=== PATIENT | female | born 1985 | race Two or more races ===

== ENCOUNTER 2018-01-01 09:55 | Emergency (ER) | payer MEDICAID ==
[~2018-01-01] VITALS: Ht 160 cm; Wt 61.2 kg
[2018-01-01 10:09] VITALS: BP 138/69
[2018-01-01] MEDS ORDERED: ACETAMINOPHEN 325 MG TABLET ONE (11:09)
[2018-01-01] MEDS ORDERED: ACETAMINOPHEN 325 MG TABLET PO ONE (11:30)
== END 2018-01-01 11:25 | disposition home or self-care (01) ==
LOC: ER 09:57
DX: J02.8 Acute pharyngitis due to other specified organisms (principal); B97.89 Other viral agents as the cause of diseases classified elsewhere
CPT/HCPCS: A4606; Z7610

== ENCOUNTER 2019-01-03 10:40 | Emergency (ER) | payer MEDICAID ==
[~2019-01-03] VITALS: Ht 157.5 cm; Wt 56.7 kg
--- NOTE | 2019-01-03 10:50 | NUR ---
URINE SPECIMEN COLLECTED AND SENT TO LAB.
--- NOTE | 2019-01-03 10:50 | NUR ---
PATIENT A/OX4, PELVIC AREA PAIN R/T LOWER BACK X 2 WEEKS, DENIES DYSURIA, BREATHING EVEN AND UNLABORED, NO SOB NOTED. WILL MONITOR.
[2019-01-03] MEDS ORDERED: IBUPROFEN 600 MG TABLET PO ONE ×2 (10:58→11:00)
--- NOTE | 2019-01-03 11:00 | NUR ---
ER PHLEB AT BEDSIDE FOR BLOOD DRAW.
[2019-01-03 11:06] LABS: BASOPHILS # (AUTO) 0.1 /CMM (0.0-0.2); BASOPHILS % (AUTO) 2.3 % (0.0-2.0); EOSINOPHILS % (AUTO) 1.2 % (0.0-6.0); HEMATOCRIT 36 % (33-45); HEMOGLOBIN 12.5 g/dL (11.5-14.8); LYMPHOCYTES # (AUTO) 0.7 /CMM (0.8-4.8); LYMPHOCYTES % (AUTO) 18.8 % (20.0-44.0); MEAN CORPUSCULAR HGB CONC 35 g/dl (31.0-36.0); MEAN CORPUSCULAR VOLUME 93 fL (82-100); MONOCYTES # (AUTO) 0.3 /CMM (0.1-1.30); MONOCYTES % (AUTO) 6.9 % (2.0-12.0); NEUTROPHILS # (AUTO) 2.8 /CMM (1.8-8.9); NEUTROPHILS % (AUTO) 70.8 % (43.0-81.0); PLATELET COUNT (AUTO) 151 /CMM (150-450); RED BLOOD CELL COUNT(AUTO) 3.91 MIL/uL (4.0-5.2); WHITE BLOOD COUNT (AUTO) 3.9 K/uL (4.3-11.0)
[2019-01-03 11:09] LABS: APPEARANCE,URINE Clear (CLEAR); BILIRUBIN,URINE Negative (NEGATIVE); BLOOD, URINE Negative Ery/uL (NEGATIVE); COLOR,URINE Yellow (YELLOW); KETONES,URINE Negative (NEGATIVE); LEUKOCYTE ESTERASE ,URINE Negative (NEGATIVE); NITRITE, URINE Negative (NEGATIVE); PROTEIN,URINE Negative (NEGATIVE); UGLUCOSE Negative (NEGATIVE); UROBILINOGEN,URINE 0.2 EU/dL (0.2)
[2019-01-03 11:11] LABS: CALCIUM, SERUM 8.4 mg/dL (8.5-10.1); CREATININE 0.6 mg/dL (0.6-1.3); POTASSIUM 3.8 mmol/L (3.5-5.1)
--- NOTE | 2019-01-03 11:39 | NUR ---
Patient discharged to home in stable condition. Written and verbal after care instructions given. Patient verbalizes understanding of instruction.
[2019-01-03 11:40] VITALS: BP 116/71
== END 2019-01-03 11:41 | disposition home or self-care (01) ==
LOC: ER 10:42
DX: R10.2 Pelvic and perineal pain (principal)
CPT/HCPCS: 36415; 76856; 80048; 81001; 84702; 85025; 99284; A4606; 81000-TC

== ENCOUNTER 2019-05-11 15:50 | Emergency (ER) | payer MEDICAID ==
[~2019-05-11] VITALS: Ht 152.4 cm; Wt 47.6 kg
[2019-05-11 16:22] LABS: APPEARANCE,URINE SL CLOUDY (CLEAR); BILIRUBIN,URINE NEGATIVE (NEGATIVE); BLOOD, URINE TRACE-INTA Ery/uL (NEGATIVE); COLOR,URINE YELLOW (YELLOW); KETONES,URINE NEGATIVE (NEGATIVE); LEUKOCYTE ESTERASE ,URINE 1+ (NEGATIVE); NITRITE, URINE NEGATIVE (NEGATIVE); PH,URINE 5.5 (5.0-8.0); PROTEIN,URINE NEGATIVE (NEGATIVE); UGLUCOSE NEGATIVE (NEGATIVE); UROBILINOGEN,URINE 0.2 EU/dL (0.2)
[2019-05-11] MEDS ORDERED: ONDANSETRON HCL/PF 4 MG/2 ML VIAL IVP ONE (16:30)
[2019-05-11] MEDS ORDERED: IV NS 0.9% 1,000 ML BAG IV ONE (16:30)
[2019-05-11] MEDS ORDERED: ONDANSETRON HCL/PF 4 MG/2 ML VIAL ONE (16:31)
[2019-05-11 16:39] LABS: BASOPHILS % (AUTO) 0.8 % (0.0-2.0); EOSINOPHILS % (AUTO) 4.7 % (0.0-6.0); HEMATOCRIT 36 % (33-45); HEMOGLOBIN 12.5 g/dL (11.5-14.8); LYMPHOCYTES % (AUTO) 22.9 % (20.0-44.0); MEAN CORPUSCULAR HGB CONC 35 g/dl (31.0-36.0); MEAN CORPUSCULAR VOLUME 91 fL (82-100); MONOCYTES # (AUTO) 0.4 /CMM (0.1-1.30); MONOCYTES % (AUTO) 8.5 % (2.0-12.0); NEUTROPHILS # (AUTO) 2.7 /CMM (1.8-8.9); NEUTROPHILS % (AUTO) 63.1 % (43.0-81.0); PLATELET COUNT (AUTO) 158 /CMM (150-450); RED BLOOD CELL COUNT(AUTO) 3.97 MIL/uL (4.0-5.2); WHITE BLOOD COUNT (AUTO) 4.3 K/uL (4.3-11.0)
--- NOTE | 2019-05-11 16:44 | NUR ---
C/O WORSENING LOWER BACK PAIN RADIATES TO LOWER ABDOMEN X 3 WEEKS +NAUSEA AND DIARRHEA X 2 DAYS. PT AAOX4, VSS. RR EVEN & UNLABORED. DENIES CP, SOB, DIZZINESS AT THIS TIME. PT SEEN & EVAL'D BY JORDIN GALLAGHER. MEDICATED ORDERED & WILL CONT TO MONITOR.
[2019-05-11 17:05] LABS: ALBUMIN 3.7 g/dL (3.4-5.0); BILIRUBIN,DIRECT 0.2 mg/dL (0.0-0.2); BILIRUBIN,TOTAL 0.8 mg/dL (0.2-1.0); CALCIUM, SERUM 8.5 mg/dL (8.5-10.1); CREATININE 0.8 mg/dL (0.6-1.3); POTASSIUM 3.8 mmol/L (3.5-5.1); TOTAL PROTEIN, SERUM 7.2 g/dL (6.4-8.2)
[2019-05-11 17:30] LABS: BACTERIA,URINE 2+ /HPF (None Seen)
[2019-05-11] MEDS ORDERED: CEFTRIAXONE 1GM BAG (ER ONLY) 1 GM/50 ML PIGGYBACK IV ONE (18:00)
[2019-05-11] MEDS ORDERED: CEFTRIAXONE 1GM BAG (ER ONLY) 50 ML IV ONE (18:21)
--- NOTE | 2019-05-11 19:18 | NUR ---
Patient discharged to home in stable condition. Written and verbal after care instructions given. Patient verbalizes understanding of instruction. IV removed. Catheter intact and site benign. Pressure and 4x4 applied to site. No bleeding noted.
[2019-05-11 19:19] VITALS: BP 108/64
== END 2019-05-11 19:20 | disposition home or self-care (01) ==
LOC: ER 15:52
DX: N12 Tubulo-interstitial nephritis, not specified as acute or chronic (principal); R19.7 Diarrhea, unspecified; Z98.890 Other specified postprocedural states
CPT/HCPCS: 36415; 80048; 80076; 81001; 84703; 85025; 87086; 96361; 96365; 96375; 99283; J0696; J2405; J7030; 81000-TC

== ENCOUNTER 2019-05-14 13:45 | Emergency (ER) | payer MEDICAID ==
--- NOTE | 2019-05-14 13:55 | NUR ---
CALLED TO TRIAGE,NO ANSWER
--- NOTE | 2019-05-14 14:20 | NUR ---
CALLED TO TRIAGE, NO ANSWER
--- NOTE | 2019-05-14 15:04 | NUR ---
CALLED IN WAITING ROOM, NO ANSWER.
== END 2019-05-14 15:07 | disposition left against medical advice (07) ==
LOC: ER 13:45
DX: M54.9 Dorsalgia, unspecified (principal); Z53.21 Procedure and treatment not carried out due to patient leaving prior to being seen by health care provider

== ENCOUNTER 2019-10-20 14:21 | Emergency (ER) | payer MEDICAID ==
[~2019-10-20] VITALS: Ht 165.1 cm; Wt 51.3 kg
[2019-10-20 14:26] VITALS: BP 106/61
[2019-10-20 14:43] LABS: BASOPHILS % (AUTO) 0.7 % (0.0-2.0); EOSINOPHILS % (AUTO) 1.4 % (0.0-6.0); HEMATOCRIT 37 % (33-45); HEMOGLOBIN 12.7 g/dL (11.5-14.8); MEAN CORPUSCULAR HGB CONC 34 g/dl (31.0-36.0); MEAN CORPUSCULAR VOLUME 93 fL (82-100); MONOCYTES # (AUTO) 0.4 /CMM (0.1-1.30); MONOCYTES % (AUTO) 8.2 % (2.0-12.0); NEUTROPHILS % (AUTO) 67.7 % (43.0-81.0); PLATELET COUNT (AUTO) 166 /CMM (150-450); RED BLOOD CELL COUNT(AUTO) 4.03 MIL/uL (4.0-5.2); WHITE BLOOD COUNT (AUTO) 4.4 K/uL (4.3-11.0)
[2019-10-20 14:46] LABS: APPEARANCE,URINE Clear (CLEAR); BILIRUBIN,URINE Negative (NEGATIVE); BLOOD, URINE Negative Ery/uL (NEGATIVE); COLOR,URINE Yellow (YELLOW); KETONES,URINE Negative (NEGATIVE); LEUKOCYTE ESTERASE ,URINE Negative (NEGATIVE); NITRITE, URINE Negative (NEGATIVE); PROTEIN,URINE Negative (NEGATIVE); UGLUCOSE Negative (NEGATIVE); UROBILINOGEN,URINE 0.2 EU/dL (0.2)
[2019-10-20 15:56] LABS: CALCIUM, SERUM 8.7 mg/dL (8.5-10.1); CREATININE 0.7 mg/dL (0.6-1.3); POTASSIUM 3.9 mmol/L (3.5-5.1)
== END 2019-10-20 15:21 | disposition home or self-care (01) ==
LOC: ER 14:21
DX: N12 Tubulo-interstitial nephritis, not specified as acute or chronic (principal); Z95.818 Presence of other cardiac implants and grafts; Z98.890 Other specified postprocedural states
CPT/HCPCS: 36415; 80048-TC; 81000-TC; 84703-TC; 85025-TC; 87086-TC

== ENCOUNTER 2019-11-05 11:03 | Emergency (ER) | payer MEDICAID ==
[~2019-11-05] VITALS: Ht 157.5 cm; Wt 49.9 kg
--- NOTE | 2019-11-05 11:22 | NUR ---
CAME IN FOR HEADACHE X 2 WEEKS, TO ER BED 16, HOOKED TO MONITOR, AWAITING MD LINDSAY. KEPT COMFORTABLE.
--- NOTE | 2019-11-05 12:32 | NUR ---
DR PAYAN AT BEDSIDE
[2019-11-05] MEDS ORDERED: PROCHLORPERAZINE MALEATE 10 MG TABLET PO ONE (13:00)
[2019-11-05] MEDS ORDERED: KETOROLAC TROMETHAMINE INJ 30 MG/ML VIAL IM ONE (13:00)
[2019-11-05] MEDS ORDERED: PROCHLORPERAZINE MALEATE 10 MG TABLET ONE (13:02)
[2019-11-05] MEDS ORDERED: KETOROLAC TROMETHAMINE 15 MG/ML VIAL ONE (13:02)
--- NOTE | 2019-11-05 13:05 | NUR ---
PATIENT LMP 10/29/2019.
--- NOTE | 2019-11-05 13:11 | NUR ---
Patient discharged to home in stable condition. Written and verbal after care instructions given. Patient verbalizes understanding of instruction.
[2019-11-05 13:12] VITALS: BP 129/72
== END 2019-11-05 13:12 | disposition home or self-care (01) ==
LOC: ER 11:05
DX: R51 Headache (principal); Z95.1 Presence of aortocoronary bypass graft; Z98.890 Other specified postprocedural states
CPT/HCPCS: 96372; 99283; J1885; Q0164

== ENCOUNTER 2020-06-05 15:29 | Emergency (ER) | payer MEDICAID ==
[~2020-06-05] VITALS: Ht 157.5 cm; Wt 54.0 kg
--- NOTE | 2020-06-05 15:45 | NUR ---
Patient came in to the er c/o abd pain since yesterday radiating to left lower back 10/ ps. On room air, breathing evenly and unlabored. connected to the monitor and pulse ox. kept comfortable, will continue to monitor accordingly.
[2020-06-05] MEDS ORDERED: KETOROLAC TROMETHAMINE INJ 30 MG/ML VIAL IV ONE (16:00)
[2020-06-05 16:06] LABS: BASOPHILS % (AUTO) 0.3 % (0.0-2.0); EOSINOPHILS % (AUTO) 0.3 % (0.0-6.0); HEMATOCRIT 36 % (33-45); HEMOGLOBIN 12.4 g/dL (11.5-14.8); LYMPHOCYTES # (AUTO) 0.9 /CMM (0.8-4.8); LYMPHOCYTES % (AUTO) 9.7 % (20.0-44.0); MEAN CORPUSCULAR HGB CONC 34 g/dl (31.0-36.0); MEAN CORPUSCULAR VOLUME 94 fL (82-100); MONOCYTES # (AUTO) 0.5 /CMM (0.1-1.30); MONOCYTES % (AUTO) 5.4 % (2.0-12.0); NEUTROPHILS # (AUTO) 8.2 /CMM (1.8-8.9); NEUTROPHILS % (AUTO) 84.3 % (43.0-81.0); PLATELET COUNT (AUTO) 162 /CMM (150-450); RED BLOOD CELL COUNT(AUTO) 3.85 MIL/uL (4.0-5.2); WHITE BLOOD COUNT (AUTO) 9.7 K/uL (4.3-11.0)
--- NOTE | 2020-06-05 16:13 | NUR ---
URINE SAMPLE COLLECTED AND SENT TO LAB
[2020-06-05 16:14] LABS: CALCIUM, SERUM 8.7 mg/dL (8.5-10.1); CREATININE 0.8 mg/dL (0.6-1.3); POTASSIUM 3.1 mmol/L (3.5-5.1)
[2020-06-05 16:23] LABS: ALBUMIN 3.8 g/dL (3.4-5.0); BILIRUBIN,DIRECT 0.3 mg/dL (0.0-0.2); BILIRUBIN,TOTAL 2.5 mg/dL (0.2-1.0); TOTAL PROTEIN, SERUM 8.1 g/dL (6.4-8.2)
[2020-06-05 16:28] LABS: APPEARANCE,URINE Clear (CLEAR); BILIRUBIN,URINE Negative (NEGATIVE); BLOOD, URINE Trace-lysed Ery/uL (NEGATIVE); COLOR,URINE Yellow (YELLOW); KETONES,URINE Negative (NEGATIVE); LEUKOCYTE ESTERASE ,URINE Small (NEGATIVE); NITRITE, URINE Negative (NEGATIVE); PROTEIN,URINE Negative (NEGATIVE); UGLUCOSE Negative (NEGATIVE); UROBILINOGEN,URINE 0.2 EU/dL (0.2)
[2020-06-05] MEDS ORDERED: KETOROLAC TROMETHAMINE 15 MG/ML VIAL ONE (16:31)
--- NOTE | 2020-06-05 16:37 | NUR ---
wheeled patient via wheelchair for ct
[2020-06-05 16:39] LABS: BACTERIA,URINE Many /HPF (None Seen); SQUAMOUS EPITHELIAL CELL,UR Many /HPF (None Seen)
--- NOTE | 2020-06-05 16:45 | NUR ---
patient came back from ct
[2020-06-05] MEDS ORDERED: POTASSIUM CHLORIDE 20 MEQ TAB.PRT.SR PO ONE ×2 (17:27→17:30)
[2020-06-05] MEDS ORDERED: CEPHALEXIN MONOHYDRATE 500 MG CAPSULE PO ONE ×2 (17:27→17:30)
[2020-06-05 17:51] VITALS: BP 107/64
--- NOTE | 2020-06-05 17:51 | NUR ---
IV removed. Catheter intact and site benign. Pressure and 4x4 applied to site. No bleeding noted.Patient discharged to home in stable condition. Written and verbal after care instructions given. Patient verbalizes understanding of instruction.
== END 2020-06-05 17:52 | disposition home or self-care (01) ==
LOC: ER 15:31
DX: N39.0 Urinary tract infection, site not specified (principal); Z98.890 Other specified postprocedural states; Z95.818 Presence of other cardiac implants and grafts
CPT/HCPCS: 36415; 74176; 80048; 80076; 81001; 83690; 84703; 85025; 87086; 96374; 99284; J1885; 81000-TC

== ENCOUNTER 2020-08-16 20:18 | Emergency (ER) | payer MEDICAID ==
[~2020-08-16] VITALS: Ht 157.5 cm; Wt 54.4 kg
--- NOTE | 2020-08-16 20:25 | NUR ---
BIBSELF C/O COUGH AND SORE THROAT X4 DAYS. VITAL SIGNS STABLE. NO ACUTE DISTRESS NOTED AT THIS TIME
[2020-08-16] MEDS ORDERED: IBUPROFEN 600 MG TABLET PO ONE (21:30)
[2020-08-16] MEDS ORDERED: IBUPROFEN 600 MG TABLET ONE (21:41)
--- NOTE | 2020-08-16 21:41 | NUR ---
covid swab done. sent to lab
--- NOTE | 2020-08-16 22:39 | NUR ---
Patient discharged to home in stable condition. Written and verbal after care instructions given. Patient verbalizes understanding of instruction.Pt ambulatory with a steady gait
[2020-08-16 22:44] VITALS: BP 118/79
== END 2020-08-16 22:45 | disposition home or self-care (01) ==
LOC: ER 20:23
DX: J20.9 Acute bronchitis, unspecified (principal); Z20.828 Contact with and (suspected) exposure to other viral communicable diseases; R09.89 Other specified symptoms and signs involving the circulatory and respiratory systems; Z95.1 Presence of aortocoronary bypass graft
CPT/HCPCS: 71045; 99284; C9803; U0003

== ENCOUNTER 2020-10-09 19:16 | Emergency (ER) | payer MEDICAID ==
[~2020-10-09] VITALS: Ht 152.4 cm; Wt 77.1 kg
--- NOTE | 2020-10-09 19:52 | NUR ---
PT AAOX4. BIBSELF C/O C/O LOWER ABDOMINAL PAIN WITH PAIN BURNING AND FREQUENCY UPON URINATION. AWAITING EVAL AND ORDERS.
[2020-10-09 21:37] LABS: BILIRUBIN,URINE NEGATIVE (NEGATIVE); BLOOD, URINE TRACE Ery/uL (NEGATIVE); COLOR,URINE YELLOW (YELLOW); LEUKOCYTE ESTERASE ,URINE NEGATIVE (NEGATIVE); NITRITE, URINE NEGATIVE (NEGATIVE); PH,URINE 5.5 (5.0-8.0); PROTEIN,URINE NEGATIVE (NEGATIVE); UGLUCOSE NEGATIVE (NEGATIVE); UROBILINOGEN,URINE 0.2 EU/dL (0.2)
[2020-10-09 21:47] LABS: BACTERIA,URINE 1+ /HPF (None Seen); WBC,URINE 0-2 /HPF (0-3)
[2020-10-09] MEDS ORDERED: KETOROLAC TROMETHAMINE INJ 30 MG/ML VIAL ONE (21:57)
[2020-10-09] MEDS ORDERED: ONDANSETRON HCL/PF 4 MG/2 ML VIAL ONE (21:57)
[2020-10-09] MEDS ORDERED: IV NS 0.9% 1,000 ML BAG IV ONE (22:00)
[2020-10-09] MEDS ORDERED: ONDANSETRON HCL/PF 4 MG/2 ML VIAL IVP ONE (22:00)
[2020-10-09] MEDS ORDERED: KETOROLAC TROMETHAMINE INJ 30 MG/ML VIAL IV ONE (22:00)
--- NOTE | 2020-10-09 22:01 | NUR ---
PT MEDICATED, BROUGHT TO CT.
--- NOTE | 2020-10-09 22:01 | NUR ---
LINE ESTABLISHED LAC 20G, BLOOD COLLECTED, SENT TO LAB.
[2020-10-09 22:07] LABS: BASOPHILS % (AUTO) 1.2 % (0.0-2.0); EOSINOPHILS % (AUTO) 3.3 % (0.0-6.0); HEMATOCRIT 39 % (33-45); HEMOGLOBIN 13.4 g/dL (11.5-14.8); LYMPHOCYTES # (AUTO) 1.3 /CMM (0.8-4.8); LYMPHOCYTES % (AUTO) 32.7 % (20.0-44.0); MEAN CORPUSCULAR HGB CONC 34 g/dl (31.0-36.0); MEAN CORPUSCULAR VOLUME 92 fL (82-100); MONOCYTES # (AUTO) 0.4 /CMM (0.1-1.30); MONOCYTES % (AUTO) 9.2 % (2.0-12.0); NEUTROPHILS # (AUTO) 2.2 /CMM (1.8-8.9); NEUTROPHILS % (AUTO) 53.6 % (43.0-81.0); PLATELET COUNT (AUTO) 196 /CMM (150-450); RED BLOOD CELL COUNT(AUTO) 4.23 MIL/uL (4.0-5.2); WHITE BLOOD COUNT (AUTO) 4.1 K/uL (4.3-11.0)
[2020-10-09 22:16] LABS: CALCIUM, SERUM 8.8 mg/dL (8.5-10.1); CREATININE 0.6 mg/dL (0.6-1.3); POTASSIUM 3.6 mmol/L (3.5-5.1)
--- NOTE | 2020-10-09 22:17 | NUR ---
BACK FROM CT
[2020-10-09 22:22] LABS: ALBUMIN 3.8 g/dL (3.4-5.0); BILIRUBIN,DIRECT 0.2 mg/dL (0.0-0.2); BILIRUBIN,TOTAL 0.5 mg/dL (0.2-1.0); TOTAL PROTEIN, SERUM 7.6 g/dL (6.4-8.2)
--- NOTE | 2020-10-10 00:22 | NUR ---
MD AT BEDSIDE SPEAKING TO PT REGARDING DISCHARGE. DIRECTOR [employer] AT BEDSIDE.
[2020-10-10] MEDS ORDERED: HYDROMORPHONE 1 MG/1 ML DISP.SYRIN ONE (00:29)
[2020-10-10] MEDS ORDERED: HYDROMORPHONE 1 MG/1 ML DISP.SYRIN IV ONE (00:30)
[2020-10-10] MEDS ORDERED: MAGNESIUM HYDROXIDE 30 ML UDC ONE (00:30)
[2020-10-10] MEDS ORDERED: MAGNESIUM HYDROXIDE 30 ML UDC PO ONE (00:30)
--- NOTE | 2020-10-10 00:35 | NUR ---
Patient discharged to home in stable condition. Written and verbal after care instructions given. Patient verbalizes understanding of instruction. Pt ambulated out of E.D. vss.
--- NOTE | 2020-10-10 00:35 | NUR ---
IV removed. Catheter intact and site benign. Pressure and 4x4 applied to site. No bleeding noted.
[2020-10-10 00:36] VITALS: BP 121/71
== END 2020-10-10 00:44 | disposition home or self-care (01) ==
LOC: ER 19:19
DX: K59.00 Constipation, unspecified (principal); N83.202 Unspecified ovarian cyst, left side; Z98.890 Other specified postprocedural states
CPT/HCPCS: 36415; 74176; 76856; 80048; 80076; 81001; 84703; 85025; 87086; 96361; 96374; 96375 ×2; 99285; J1170; J1885; J2405; J7030

== ENCOUNTER 2021-05-08 15:44 | Emergency (ER) | payer MEDICAID ==
[~2021-05-08] VITALS: Ht 154.9 cm; Wt 57.2 kg
--- NOTE | 2021-05-08 16:55 | NUR ---
THE PATIENT BIBS FOR C/O DIZZINESS, BODYACHES, SORE THROAT AND NAUSEA X 4 DAYS. RATES BODYACHES 2/10. IN ROOM AIR AND DENIES SOB. RESPIRATION REGULAR AND UNLABORED. WILL CONTINUE TO MONITOR THE PATIENT
[2021-05-08] MEDS ORDERED: IV NS 0.9% 1,000 ML BAG IV ONE (17:30)
[2021-05-08] MEDS ORDERED: METOCLOPRAMIDE HCL 10 MG/2 ML VIAL IV ONE (17:30)
[2021-05-08] MEDS ORDERED: KETOROLAC TROMETHAMINE INJ 30 MG/ML VIAL IV ONE (17:30)
--- NOTE | 2021-05-08 17:38 | NUR ---
URINE COLLECTED AND SENT TO THE LAB
--- NOTE | 2021-05-08 17:41 | NUR ---
BLOOD SPECIMEN COLLECTED AND SENT TO THE LAB
[2021-05-08] MEDS ORDERED: METOCLOPRAMIDE HCL 10 MG/2 ML VIAL ONE (18:01)
[2021-05-08 18:08] LABS: BASOPHILS % (AUTO) 0.8 % (0.0-2.0); HEMATOCRIT 35 % (33-45); HEMOGLOBIN 11.8 g/dL (11.5-14.8); LYMPHOCYTES % (AUTO) 21.4 % (20.0-44.0); MEAN CORPUSCULAR HGB CONC 34 g/dl (31.0-36.0); MEAN CORPUSCULAR VOLUME 92 fL (82-100); MONOCYTES # (AUTO) 0.4 K/uL (0.1-1.30); MONOCYTES % (AUTO) 8.9 % (2.0-12.0); NEUTROPHILS % (AUTO) 66.9 % (43.0-81.0); PLATELET COUNT (AUTO) 215 K/uL (150-450); RED BLOOD CELL COUNT(AUTO) 3.76 MIL/uL (4.0-5.2); WHITE BLOOD COUNT (AUTO) 4.5 K/uL (4.3-11.0)
[2021-05-08 18:16] LABS: BILIRUBIN,URINE NEGATIVE (NEGATIVE); COLOR,URINE YELLOW (YELLOW); LEUKOCYTE ESTERASE ,URINE NEGATIVE (NEGATIVE); NITRITE, URINE NEGATIVE (NEGATIVE); PROTEIN,URINE NEGATIVE (NEGATIVE); UGLUCOSE NEGATIVE (NEGATIVE); UROBILINOGEN,URINE 0.2 EU/dL (0.2)
[2021-05-08] MEDS ORDERED: LIDOCAINE VISCOUS 2% UD 15 ML UDC ONE (18:26)
[2021-05-08] MEDS ORDERED: FAMOTIDINE/PF INJ 20 MG/2 ML VIAL IV ONE ×2 (18:26→18:30)
[2021-05-08] MEDS ORDERED: MAG HYDROX/AL HYDROX/SIMETH 30 ML UDC ONE (18:26)
[2021-05-08] MEDS ORDERED: KETOROLAC TROMETHAMINE 15 MG/ML VIAL ONE (18:26)
[2021-05-08] MEDS ORDERED: LIDOCAINE VISCOUS 2% UD 15 ML UDC MM ONE (18:30)
[2021-05-08] MEDS ORDERED: MAG HYDROX/AL HYDROX/SIMETH 30 ML UDC PO ONE (18:30)
[2021-05-08 18:36] LABS: CALCIUM, SERUM 8.2 mg/dL (8.5-10.1); CREATININE 0.7 mg/dL (0.6-1.3); POTASSIUM 3.6 mmol/L (3.5-5.1)
[2021-05-08 18:42] LABS: ALBUMIN 3.7 g/dL (3.4-5.0); BILIRUBIN,DIRECT 0.1 mg/dL (0.0-0.2); BILIRUBIN,TOTAL 0.7 mg/dL (0.2-1.0); TOTAL PROTEIN, SERUM 7.3 g/dL (6.4-8.2)
--- NOTE | 2021-05-08 19:05 | NUR ---
covid swab done and sent to the lab
[2021-05-08] MEDS ORDERED: ACET-2605 PO (20:22)
--- NOTE | 2021-05-08 20:40 | NUR ---
Patient discharged to home in stable condition. Rx and Written and verbal after care instructions given. Patient verbalizes understanding of instruction.
[2021-05-08 20:46] VITALS: BP 131/72
== END 2021-05-08 20:46 | disposition home or self-care (01) ==
LOC: ER 15:46
DX: B34.9 Viral infection, unspecified (principal); Z20.822 Contact with and (suspected) exposure to COVID-19; R10.10 Upper abdominal pain, unspecified; Z95.1 Presence of aortocoronary bypass graft
CPT/HCPCS: 36415; 80048; 80076; 81003; 83690; 84703; 85025; 87426; 96361; 96374; 96375; 99284; C9803; J1885; J2765; J3490; J7030

== ENCOUNTER 2022-08-16 15:13 | Emergency (ER) | payer MEDICAID ==
[~2022-08-16] VITALS: Ht 154.9 cm; Wt 55.3 kg
[2022-08-16 15:13] VITALS: BP 111/65
[~2022-08-16 15:13] MED LIST: ACET-2605 PO
--- NOTE | 2022-08-16 15:53 | NUR ---
Patient discharged to home in stable condition. Written and verbal after care instructions given. Patient verbalizes understanding of instruction.
== END 2022-08-16 15:54 | disposition home or self-care (01) ==
LOC: ER 15:18
DX: H11.31 Conjunctival hemorrhage, right eye (principal); Z79.1 Long term (current) use of non-steroidal anti-inflammatories (NSAID)

== ENCOUNTER 2022-09-05 21:18 | Emergency (ER) | payer MEDICAID ==
[~2022-09-05] VITALS: Ht 157.5 cm; Wt 54.4 kg
--- NOTE | 2022-09-05 23:45 | NUR ---
BIB SISTER FOR POSSIBLE FOREIGN BODY IN THE R EYE DUE TO BROKEN WINDOW VISSION ACUITY: [id number], [id number]
[2022-09-05 23:46] VITALS: BP 131/85
[2022-09-06] MEDS ORDERED: FLUORESCEIN SODIUM OPHTH 1 EA STRIP OP ONE
[2022-09-06] MEDS ORDERED: FLUORESCEIN SODIUM OPHTH 1 EA STRIP ONE (00:03)
--- NOTE | 2022-09-06 00:05 | NUR ---
DR. METZ AT PT'S BEDSIDE FOR EVAL
[2022-09-06] MEDS ORDERED: POLY10DR OP (00:18)
--- NOTE | 2022-09-06 00:21 | NUR ---
Patient discharged to home in stable condition. Written and verbal after care instructions given. Patient verbalizes understanding of instruction.
== END 2022-09-06 00:28 | disposition home or self-care (01) ==
LOC: ER 21:20
DX: S05.01XA Injury of conjunctiva and corneal abrasion without foreign body, right eye, initial encounter (principal); Z79.1 Long term (current) use of non-steroidal anti-inflammatories (NSAID); X58.XXXA Exposure to other specified factors, initial encounter; Y93.89 Activity, other specified; Y92.89 Other specified places as the place of occurrence of the external cause; Y99.8 Other external cause status

== ENCOUNTER 2022-12-03 13:01 | Emergency (ER) | payer MEDICAID ==
[~2022-12-03] VITALS: Ht 152.4 cm; Wt 56.7 kg
[~2022-12-03 13:01] MED LIST changes: +POLY10DR OP
[2022-12-03 13:50] LABS: BILIRUBIN,URINE 1+ (NEGATIVE); COLOR,URINE DARK YELLOW (YELLOW); LEUKOCYTE ESTERASE ,URINE NEGATIVE (NEGATIVE); NITRITE, URINE NEGATIVE (NEGATIVE); PROTEIN,URINE TRACE mg/dl (NEGATIVE); UGLUCOSE NEGATIVE (NEGATIVE); UROBILINOGEN,URINE 0.2 EU/dL (0.2)
[2022-12-03 13:52] LABS: BACTERIA,URINE Moderate /HPF (None Seen); SQUAMOUS EPITHELIAL CELL,UR Many /HPF (None Seen)
[2022-12-03] MEDS ORDERED: METR500T PO (13:54)
--- NOTE | 2022-12-03 14:01 | NUR ---
Patient discharged to home in stable condition. Written and verbal after care instructions given. Patient verbalizes understanding of instruction.
[2022-12-03 14:04] VITALS: BP 105/61
== END 2022-12-03 14:04 | disposition home or self-care (01) ==
LOC: ER 13:04
DX: N76.0 Acute vaginitis (principal); Z95.1 Presence of aortocoronary bypass graft; Z79.899 Other long term (current) drug therapy
CPT/HCPCS: 81001; 84703-TC; 87086-TC

== ENCOUNTER 2023-06-22 15:33 | Emergency (ER) | payer MEDICAID ==
[~2023-06-22] VITALS: Ht 149.9 cm; Wt 61.2 kg
[~2023-06-22 15:33] MED LIST changes: +METR500T PO
[2023-06-22 15:42] VITALS: BP 112/65; TEMP 98; O2SAT 98
[2023-06-22 16:26] LABS: APPEARANCE,URINE SLIGHTLY CLOUDY (CLEAR); BILIRUBIN,URINE NEGATIVE (NEGATIVE); BLOOD, URINE NEGATIVE Ery/uL (NEGATIVE); KETONES,URINE NEGATIVE (NEGATIVE); LEUKOCYTE ESTERASE ,URINE TRACE (NEGATIVE); NITRITE, URINE POSITIVE (NEGATIVE); PROTEIN,URINE TRACE mg/dl (NEGATIVE); UGLUCOSE TRACE mg/dL (NEGATIVE)
[2023-06-22 16:34] LABS: PREGNANCY TEST URINE QUAL NEGATIVE (NEGATIVE)
[2023-06-22 17:24] LABS: COLOR,URINE ORANGE (YELLOW)
[2023-06-22 17:25] LABS: ADD URINE CULTURE YES; BACTERIA,URINE 3+ /HPF (None Seen)
[2023-06-22] MEDS ORDERED: NITR100C6 PO (17:31)
== END 2023-06-22 17:37 | disposition home or self-care (01) ==
LOC: ER 15:39
DX: N39.0 Urinary tract infection, site not specified (principal)
CPT/HCPCS: 81001; 84703-TC; 87086-TC